=== PATIENT | female | born 1995 | race Caucasian/White ===

== ENCOUNTER 2022-07-10 23:34 | Emergency (ER) | payer SELFPAY ==
[~2022-07-10] VITALS: Ht 177.8 cm; Wt 120.1 kg
[2022-07-11] MEDS ORDERED: HYDROcodone/APAP 5 MG/325 MG (LORTAB) TAB PO ONE (00:15)
[2022-07-11] MEDS ORDERED: AUGMENTIN 875 MG TAB (AMOXICILLIN/CLAVULANATE) ONE (00:19)
[2022-07-11] MEDS ORDERED: ACHD5005 PO ×2 (00:23→00:25)
[2022-07-11] MEDS ORDERED: PENI500T PO ×2 (00:23→00:25)
--- NOTE | 2022-07-11 00:23 | ED EENT ---
History of Present Illness General Chief Complaint: Dental Problems/Pain Stated Complaint: SORE MOUTH Nursing Triage Note: Patient arrival per POV ambulating to ED 2 with stable gait. Pt reports mouth pain defined as dental because of a broken tooth lower gum right sided posterior tooth. Pt states sores in throat on right side with foul taste in moth and when swallowing. Has not seen dentist for long standing fractured tooth. Source: patient Exam Limitations: no limitations History of Present Illness Date Seen by Provider: Jul 11, 2022 Time Seen by Provider: 00:00 Initial Comments Patient is a 27-year-old female presents with right lower anterior premolar pain. She states she fractured tooth 2 weeks ago and that the pain began 2 days ago. She reports swelling to her gum and submandibular region along with gingival soreness on the side of her mouth. She has not been evaluated by dentist for this condition. Her pain is "moderate to severe. She took 800 mg of ibuprofen 1 hour prior to ED arrival. No other acute symptoms or complaints. Timing/Duration: gradual Severity: moderate Location: mouth Prearrival Treatment: other Modifying Factors: Improves With Other Associated Symptoms: other Allergies and Home Medications Allergies Coded Allergies: No Known Drug Allergies (Unverified , 07/10/22) Patient Home Medication List Home Medication List Reviewed: Yes Review of Systems Review of Systems Constitutional: see HPI Eyes: See HPI Ears: See HPI Nose: see HPI Mouth: see HPI Throat: see HPI Past [id number] Hx Patient Social History Tobacco Use?: Yes Tobacco type used: Cigarettes Use of E-Cig and/or Vaping dev: No Substance use?: No Alcohol Use?: No Pt feels they are or have been: No Immunizations Up To Date First/Initial COVID19 Vaccinat: unvaccinated Past Medical History Surgery/Hospitalization HX: denies Last Menstrual Period: Jun 26, 2022 Physical Exam Vital Signs Vital Signs - First Documented 07/10/22 23:50 Temp 37.0 Pulse 117 Resp 20 B/P (MAP) 131/102 (112) Pulse Ox 98 O2 Delivery Room Air Height, Weight, BMI Height: '" Weight: lbs. oz. kg; 37.00 BMI Method: General Appearance: moderate distress Nose: normal inspection Mouth/Throat: mandibular swelling, other (Right anterior lower premolar, fracture with gingival swelling and submandibular swelling, no erythema, fluctuance or warmth. No dysphonia drooling or trismus.) Respiratory: lungs clear Progress/Results/Core Measures Results/Orders My Orders Orders - CHRISTIAN PARRISH DO Amoxicillin/Clavulanate Tablet (Augmenti (07/11/22 08:00) Hydrocodone/Apap 5/325 Tablet (Lortab 5 (07/11/22 00:15) Vital Signs/I&O 07/10/22 23:50 Temp 37.0 Pulse 117 Resp 20 B/P (MAP) 131/102 (112) Pulse Ox 98 O2 Delivery Room Air Blood Pressure Mean: 112 Departure Communication (Admissions) Fractured tooth with dental pain/caries. Antibiotics and pain medication given. Patient plans to follow-up with a dentist tomorrow soon as possible. Return precautions reviewed. Impression Primary Impression: Dental caries Disposition: HOME, SELF-CARE Condition: Stable Departure-Patient Inst. Decision time for Depature: 00:20 Referrals: MAYNOR VALDES (PCP/Family) Primary Care Physician Patient Instructions: Dental Pain (DC) Add. Discharge Instructions: You were evaluated in the emergency department for pain and swelling secondary to a fractured tooth and dental pain. Please take ibuprofen 800 mg 3 times daily for dental pain and newly prescribed antibiotics and pain medications as directed. Follow-up with dentist of choice soon as possible. Return to the ED if new or worsening symptoms. All discharge instructions reviewed with patient and/or family. Voiced understanding. Scripts Penicillin V Potassium (Penicillin V Potassium) 500 Mg Tablet 500 MG PO QID, #40 TAB Prov: CHRISTIAN PARRISH DO 07/11/22 Hydrocodone/Acetaminophen (Hydrocodone-Acetamin 5-325 mg) 5 Mg-325 Mg Tablet 1 TAB PO Q4H PRN for PAIN-MODERATE (5-7), #10 TAB Prov: CHRISTIAN PARRISH DO 07/11/22 CHRISTIAN PARRISH DO Jul 11, 2022 00:23
[2022-07-11 00:30] VITALS: BP 131/102
[2022-07-11] MEDS ORDERED: AUGMENTIN 875 MG TAB (AMOXICILLIN/CLAVULANATE) PO SCH (08:00)
== END 2022-07-11 00:30 | disposition home or self-care (01) ==
LOC: ER FS 23:39
DX: K02.9 Dental caries, unspecified (principal); F17.210 Nicotine dependence, cigarettes, uncomplicated; Z28.310 Unvaccinated for COVID-19
CPT/HCPCS: 99283